=== PATIENT | female | born 1990 ===

== ENCOUNTER 2023-03-31 00:02 | Inpatient (IN) | payer MEDICAID ==
[2023-03-31] MEDS ORDERED: Terbutaline 1 MG/ML SDV SUBCUT PRN (00:57)
[2023-03-31] MEDS ORDERED: Sodium Chloride 0.9% 10 ML Syringe FLUSH PRN (00:57)
[2023-03-31] MEDS ORDERED: Misoprostol 25 MCG (1/4 of 100 MCG) Tab VAG PRN ×2 (00:57→01:00)
[2023-03-31] MEDS ORDERED: Sodium Chloride 0.9% 2.5 ML Syringe FLUSH PRN (00:57)
[2023-03-31] MEDS ORDERED: Sodium Chloride 0.9% 20 ML SDV IV PRN (00:57)
[2023-03-31] MEDS ORDERED: Tranexamic Acid 1,000 MG in Sodium Chloride 0.9% 100 ML IV PRN (00:57)
[2023-03-31] MEDS ORDERED: Misoprostol 200 MCG Tab PO PRN (00:57)
[2023-03-31] MEDS ORDERED: Methylergonovine 0.2 MG/1 ML Amp IM PRN (00:57)
[2023-03-31] MEDS ORDERED: Butorphanol 1 MG/ML SDV IVPUSH PRN (00:57)
[2023-03-31] MEDS ORDERED: Carboprost Tromethamine 250 MCG/1 mL Vial IM PRN (00:57)
[2023-03-31] MEDS ORDERED: Lidocaine 1% 50 ML MDV INJECT PRN (00:57)
[2023-03-31] MEDS ORDERED: Water For Irrigation,Sterile 1,000 ML Container IRR PRN (00:57)
[2023-03-31] MEDS ORDERED: Misoprostol 25 MCG (1/4 of 100 MCG) Tab PO PRN ×2 (01:00→05:00)
[2023-03-31] MEDS ORDERED: Oxytocin/0.9 % Sodium Chloride 30 UNIT/500 ML BAG IV SCH ×2 (01:00)
[2023-03-31] MEDS ORDERED: Ondansetron 4 MG/2 ML SDV IVPUSH PRN (01:03)
[2023-03-31 01:41] LABS: HEMATOCRIT 30.8 % (36.0-46.0); HEMOGLOBIN 10.7 g/dL (12.0-16.0); MEAN CORPUSCULAR HEMOGLOBIN 31.8 pg (27.0-32.0); MEAN CORPUSCULAR HGB CONC 34.7 g/dL (31.0-37.0); MEAN CORPUSCULAR VOLUME 91.7 fL (80.0-98.0); MEAN PLATELET VOLUME 11.5 fL (7.40-12.00); RED BLOOD CELL COUNT 3.36 M/uL (4.30-5.90); WHITE BLOOD CELL COUNT,WBC 6.15 K/uL (4.0-11.0)
[2023-03-31] MEDS: Nalbuphine HCl 10 MG/ 1ML Amp IVPUSH SCH ×2 (03:09→03:10)
[2023-03-31] MEDS ORDERED: Nalbuphine HCl 10 MG/ 1ML Amp IVPUSH PRN (03:11)
[2023-03-31] MEDS ORDERED: Phenylephrine HCl 0.5 MG/5 ML AMP IVPUSH PRN (07:43)
[2023-03-31] MEDS ORDERED: ePHEDrine 50 MG/ML SDV IVPUSH PRN ×2 (07:43)
[2023-03-31] MEDS ORDERED: Ropivacaine HCl/PF 400 MG in Premix Bag 1 BAG EPIDUR SCH (07:45)
[2023-03-31] MEDS: Lactated Ringers 1,000 ML IV SCH ×4 (08:16→20:16)
[2023-03-31] MEDS ORDERED: Dexmedetomidine 200 MCG/2 ML SDV ONE (09:15)
[2023-03-31] MEDS ORDERED: Lidocaine 2% with EPINEPHrine 1:200,000 20 ML SDV ONE (09:16)
[2023-03-31] MEDS ORDERED: fentaNYL 100 MCG/2 ML SDV ONE (21:02)
[2023-03-31] MEDS ORDERED: Acetaminophen 500 MG Tab PO PRN (21:46)
[2023-03-31] MEDS ORDERED: Lanolin 100% Cream 7 GM Tube TOP PRN (21:46)
[2023-03-31] MEDS ORDERED: Witch Hazel Medicated Pads 40/Jar TOP PRN (21:46)
[2023-03-31] MEDS ORDERED: Docusate Sodium 100 MG Cap PO PRN (21:46)
[2023-03-31] MEDS ORDERED: Ibuprofen 400 MG Tab PO PRN (21:46)
[2023-03-31] MEDS ORDERED: Benzocaine/Menthol 20%-0.5% Spray 78 GM Cannister TOP PRN (21:46)
[2023-03-31] MEDS ORDERED: Bisacodyl 10 MG Supp RECTAL PRN (21:46)
[2023-03-31] MEDS: Ibuprofen 800 MG Tab PO PRN (22:06)
[2023-04-01 05:34] LABS: HEMATOCRIT 29.6 % (36.0-46.0); HEMOGLOBIN 10.1 g/dL (12.0-16.0)
[2023-04-01] MEDS: Ibuprofen 800 MG Tab PO PRN ×3 (06:30→20:21)
[2023-04-01] MEDS: Acetaminophen 500 MG Tab PO PRN ×2 (09:10→20:22)
[2023-04-02] MEDS: Acetaminophen 500 MG Tab PO PRN (03:00)
== END 2023-04-02 13:34 | disposition home or self-care (01) | DRG 807 ==
LOC: MW.OBCHECK 00:02 → MW.OB 00:03 → MW.OBCHECK 00:57 → OBSVTOIN 20:38 → MW.OB 04-01 00:30
PROVIDERS: ADMIT Obstetrics & Gynecology Obstetrics; ATTEND Obstetrics & Gynecology
PROC: 10E0XZZ Delivery of Products of Conception, External Approach (ICD-10-PCS; principal; 2023-03-31)
PROC: 3E0R3BZ Introduction of Anesthetic Agent into Spinal Canal, Percutaneous Approach (ICD-10-PCS; 2023-03-31)
PROC: 00HU33Z Insertion of Infusion Device into Spinal Canal, Percutaneous Approach (ICD-10-PCS; 2023-03-31)
PROC: 3E0P7VZ Introduction of Hormone into Female Reproductive, Via Natural or Artificial Opening (ICD-10-PCS; 2023-03-31)
PROC: 3E0DXGC Introduction of Other Therapeutic Substance into Mouth and Pharynx, External Approach (ICD-10-PCS; 2023-03-31)
DX: O30.033 Twin pregnancy, monochorionic/diamniotic, third trimester (principal); Z37.2 Twins, both liveborn; Z3A.36 36 weeks gestation of pregnancy; Z79.82 Long term (current) use of aspirin; Z79.899 Other long term (current) drug therapy
CPT/HCPCS: 36415; 51702; 59025; 59409; 85014; 85018; 85027; 86592; 86850; 86900; 86901; A9270-GY; J2590; J3010; J3490; J7120